=== PATIENT | female | born 1980 | race African-American/Black ===

== ENCOUNTER 2016-08-11 12:41 | Emergency (ER) | payer SELFPAY ==
[2016-08-11 13:22] LABS: Pregnancy Test - Urine (BHCG) Negative (Negative); Pregu Control Background? CLEAR/WHITE (CLR/WHITE); Pregu Control Bar Appear? YES (CONTROL BAR)
[2016-08-11 13:39] LABS: Clarity Cloudy (Clear); Glucose, Urine (Dipstick) Negative (Negative); Leukocyte Moderate (Negative); Nitrite Positive (Negative); Protein, Urine (Dipstick) 100 mg/dL (Neg-Trace)
[2016-08-11 13:40] LABS: Bacteria/HPF 3+ HPF (None Seen); Bilirubin Negative (Negative); Blood, Urine Moderate (Negative)
[2016-08-11] MEDS ORDERED: Ondansetron HCl/PF 4 MG/2 ML Vial ONE (13:44)
[2016-08-11] MEDS ORDERED: Ketorolac Tromethamine 30 MG/ML VIAL ONE (13:44)
[2016-08-11 13:46] LABS: #Eosinphils 0.1 thou/uL (0.0-0.7); #Lymphocytes 0.8 thou/uL (1.20-3.40); #Monocytes 0.1 thou/uL (0.11-0.59); #Neutrophils 4.2 thou/uL (1.40-6.50); %Basophils 0.7 % (0.0-1.0); %Eosinophils 1.7 % (0.0-10.0); %Lymphocytes 14.7 % (21.0-51.0); %Monocytes 0.9 % (0.0-10.0); %Neutrophils 81.9 % (42.0-75.0); Hemoglobin 11.8 g/dL (12.0-16.0); Mean Corpuscular HGB CONC 30.8 g/dL (32.0-36.0); Mean Corpuscular Hemoglobin 29.5 pg (27.0-31.0); Mean Corpuscular Volume 95.9 fl (81.0-99.0); Mean Platelet Volume 6.2 fL (7.4-10.4); Platelet Count 263 thou/uL (130-400); RBC Distribution Width 12.6 % (11.5-14.5); Red Blood Cell (RBC) Count 3.99 mill/uL (4.20-5.40); White Blood Cell (WBC) Count 5.1 thou/uL (4.8-10.8)
[2016-08-11 14:06] LABS: ALT (SGPT) 12 U/L (8-55); AST (SGOT) 22 U/L (5-34); Albumin 3.8 g/dL (3.5-5.0); Alkaline Phosphatase 69 U/L (40-150); Anion Gap 18 mmol/L (10-20); BUN (Urea Nitrogen) 9 mg/dL (7.0-18.7); Bilirubin, Total 0.4 mg/dL (0.2-1.2); Calc. Creatinine Clearance 0 mL/min (70-130); Calcium 9.3 mg/dL (7.8-10.44); Carbon Dioxide 23 mmol/L (22-29); Chloride 102 mmol/L (98-107); Estimated GFR-MDRD Greater than 90; Globulin 3.6 g/dL (2.4-3.5); Glucose 104 mg/dL (70-105); Lipase 19 U/L (8-78); Potassium 3.4 mmol/L (3.5-5.1); Protein, Total 7.4 g/dL (6.0-8.3); Sodium 140 mmol/L (136-145)
[2016-08-11] MEDS ORDERED: Acetaminophen 500 MG TAB ONE (14:14)
--- NOTE | 2016-08-11 14:29 | RAD ---
RADIOGRAPH CHEST 1 VIEW: HISTORY: 36-year-old female with right chest pain. FINDINGS: There are no air space densities, pulmonary edema, pneumothorax, or cardiomegaly. The lateral costo phrenic angles are sharp. IMPRESSION: No acute cardiopulmonary findings. [place] POS: [id number]
--- NOTE | 2016-08-11 15:17 | CT ---
EXAM: ABDOMEN CT WITHOUT CONTRAST PELVIC CT WITHOUT CONTRAST: HISTORY: Evaluate for renal calculi. Pain. COMPARISON: None. TECHNIQUE: An abdomen and pelvic CT are performed without IV or oral contrast. Coronal reformatted images are submitted for interpretation. FINDINGS: ABDOMEN CT: Lung bases are clear. Heart size is normal. No significant pericardial fluid. Descending thoracic aorta and abdominal aorta have an overall normal caliber. No periaortic fat stranding. No gastrohepatic, retrocrural, or periportal lymphadenopathy. Limited evaluation of the alimentary canal. No evidence of bowel obstruction. Multiple normal-esteban angela small bowel loops are noted. Ileocecal junction is normal. Normal-caliber appendix is identifi ed. There is air within the appendix. Scattered fecal material in a nondistended, nondilated colon . Gallbladder is unremarkable. Limited evaluation of the solid organs due to lack of IV contrast. Grossly, no solid organ abnormal ity. Bilaterally, no hydronephrosis, nephrolithiasis, or perinephric fat stranding. Limited evaluation o f both ureters due to decreased intraabdominal fat. No obvious calcification along the expected cou rse of either ureter. PELVIC CT: The uterus and adnexa are unremarkable. No pelvic mass, lymphadenopathy, or free air. Trace amount of free fluid is presumed to be physiologic. No calcifications within the urinary bladder. There are no osteoblastic or osteolytic lesions. IMPRESSION: 1. No obstructive uropathy. 2. Normal appendix. POS: [facility]
== END 2016-08-11 18:44 | disposition home or self-care (01) ==
LOC: MADERS 12:41
DX: N12 Tubulo-interstitial nephritis, not specified as acute or chronic (principal)
CPT/HCPCS: 71010; 74176; 80053; 81001; 81025; 82150; 83690; 85025; 87077; 87086; 87186; 96365; 96366; 96375; J1885; J1956; J2270; J2405